=== PATIENT | female | born 1965 | race Caucasian/White ===

== ENCOUNTER 2021-02-01 09:58 | Emergency (ER) | payer MEDICAID ==
[~2021-02-01] VITALS: Ht 160 cm; Wt 77.0 kg
[2021-02-01 11:17] LABS: BASOPHILS % (AUTO) 0.7 % (0-1); EOSINOPHILS % (AUTO) 0.7 % (0-6); HEMOGLOBIN 14.5 g/dl (12.0-16.0); LYMPHOCYTES # (AUTO) 1.6 X10'3 (1.1-4.8); MEAN CORPUSCULAR HEMOGLOBIN 30.6 PG (27.0-31.0); MEAN CORPUSCULAR HGB CONC 33.7 g/dL (33.0-36.5); MEAN CORPUSCULAR VOLUME 90.9 FL (78-98); MEAN PLATELET VOLUME 7.8 FL (7.4-10.4); MONOCYTES # (AUTO) 0.3 X10'3 (0-0.9); MONOCYTES % (AUTO) 6.2 % (2-12); NEUTROPHILS # (AUTO) 3.3 X10'3 (1.8-7.7); NEUTROPHILS % (AUTO) 62.4 % (42-75); PLATELET COUNT 227 X10'3 (140-440); RED BLOOD COUNT 4.72 X10'6 (4.20-5.60); RED CELL DISTRIBUTION WIDTH 13.1 % (11.5-14.5); WHITE BLOOD COUNT 5.3 X10'3 (4.5-11.0)
[2021-02-01 11:21] LABS: CLARITY,URINE CLEAR (Clear); GLUCOSE, URINE NEGATIVE (Neg); KETONES,URINE NEGATIVE (Neg); LEUKOCYTE ESTERASE ,URINE NEGATIVE (Neg); NITRITES, URINE NEGATIVE (Neg); OCCULT BLOOD,URINE NEGATIVE (Neg); PROTEIN,URINE NEGATIVE (Neg); UROBILINOGEN,URINE 0.2 E.U/dL (0.2-1.0)
[2021-02-01 11:25] LABS: COLOR,URINE STRAW (Yellow); UA COLLECTION TYPE CLN CATCH MIDSTREAM
[2021-02-01 11:32] LABS: ALANINE AMINOTRANSFERASE 32 U/L (12-78); ALBUMIN 4.4 G/DL (3.4-5.0); ALBUMIN/GLOBULIN RATIO 1.1 (1.1-1.5); ALKALINE PHOSPHATASE 95 IU/L (46-116); ANION GAP 10 (8-16); ASPARTATE AMINO TRANSFERASE 23 U/L (10-37); BILIRUBIN,TOTAL 0.3 MG/DL (0.1-1.0); BLOOD UREA NITROGEN 9 MG/DL (7-18); BUN/CREATININE RATIO 11.7 (6.6-38.0); CALCIUM 9.3 MG/DL (8.5-10.1); CHLORIDE 105 MMOL/L (99-107); CREATININE 0.77 MG/DL (0.40-0.90); GLUCOSE 100 MG/DL (70-104); LIPASE 56 U/L (73-393); POTASSIUM 3.9 MMOL/L (3.5-5.1); SODIUM 143 MMOL/L (135-145); TOTAL PROTEIN 8.4 G/DL (6.4-8.2); eGFR 78 ML/MIN
[2021-02-01] MEDS ORDERED: LIDOcaine Viscous 15ml cup MM ONE (15:45)
[2021-02-01] MEDS ORDERED: ondansetron 4mg rapidly disintigrating tab PO ONE (15:45)
[2021-02-01] MEDS ORDERED: mag hydrox/Alum hydrox/simeth 30ml oral suspension PO ONE (15:45)
[2021-02-01] MEDS ORDERED: famotidine 20mg tablet PO ONE (15:45)
[2021-02-01] MEDS ORDERED: pantoprazole 40mg Tablet.DR PO ONE (15:45)
[2021-02-01] MEDS ORDERED: PANT-47 PO (16:53)
[2021-02-01] MEDS ORDERED: ONDA4TAB6 PO (16:53)
[2021-02-01 17:05] VITALS: BP 132/81
== END 2021-02-01 17:06 | disposition home or self-care (01) ==
LOC: ER 09:59
DX: R10.13 Epigastric pain (principal); R42 Dizziness and giddiness; K21.9 Gastro-esophageal reflux disease without esophagitis
CPT/HCPCS: 36415; 76700; 80053; 81003; 83690; 85025; 99284

== ENCOUNTER → 2023-07-02 | Outpatient (CLI) | payer MEDICAID ==
[~2023-07-02] MED LIST: ONDA4TAB6 PO; PANT-47 PO
== END | disposition home or self-care (01) ==
LOC: RAD 10:10
PROVIDERS: ATTEND Family Medicine
DX: R10.9 Unspecified abdominal pain (principal)
CPT/HCPCS: 74022

== ENCOUNTER 2024-09-17 13:40 | Outpatient (CLI) | payer MEDICAID ==
--- NOTE | 2024-09-17 14:54 | RADIOLOGY REPORT ---
PROCEDURE: MR MRA HEAD INDICATION: FREQUENT HEADACHES Exam Date: 09/17/2024 01:51 PM COMPARISON: None TECHNIQUE: MRA head without intravenous contrast. 3D image postprocessing was performed on a dedicated workstation and images were used for interpretat ion and reporting. FINDINGS: MRA head: There is preserved flow within the bilateral distal internal carotid arteries. There is preserved fl ow within the anterior and middle cerebral arteries. There is preserved flow within the vertebral ar teries, basilar artery, cerebellar arteries and posterior cerebral arteries. There is no evidence of hemodynamically significant intracranial stenosis, proximal occlusion or aneurysm. No abnormal veno us signal is seen. IMPRESSION: 1. No evidence of hemodynamically significant intracranial stenosis, proximal occlusion or aneurysm. HS:Y
--- NOTE | 2024-09-17 14:55 | RADIOLOGY REPORT ---
PROCEDURE: MR MRI HEAD INDICATION: FREQUENT HEADACHES EXAM DATE: 09/17/2024 01:51 PM COMPARISON: None TECHNIQUE: MRI of the brain without intravenous contrast. FINDINGS: Diffusion weighted images of the brain demonstrate no evidence of acute infarction. There is no evidence of acute intracranial hemorrhage, extra-axial collection, mass effect, midline s hift, herniation or hydrocephalus. The ventricles, sulci and cisterns appear age appropriate. The signal intensities of the brain parenchyma are within normal limits. There are no signal abnormalities on the susceptibility weighted sequences. The major vascular flow voids are present. The visualized paranasal sinuses and mastoid air cells are clear. The surrounding soft tissues and o sseous structures are unremarkable. IMPRESSION: 1. No evidence of acute infarction, intracranial hemorrhage, mass effect or hydrocephalus. HS:Y
== END 2024-09-17 23:59 | disposition home or self-care (01) ==
LOC: MRI02 13:40
PROVIDERS: ATTEND Family Medicine
DX: R51.9 Headache, unspecified (principal)
CPT/HCPCS: 70544; 70551